=== PATIENT | male | born 1970 | race Caucasian/White ===

== ENCOUNTER 2022-03-21 17:52 | Emergency (ER) | payer MEDICAID ==
[~2022-03-21] VITALS: Ht 175.3 cm; Wt 100.0 kg
[2022-03-21 17:55] VITALS: BP 157/100
== END 2022-03-22 00:34 | disposition home or self-care (01) ==
LOC: ER 17:52
DX: R20.2 Paresthesia of skin (principal); G43.909 Migraine, unspecified, not intractable, without status migrainosus; Z98.890 Other specified postprocedural states; Z88.8 Allergy status to other drugs, medicaments and biological substances; Z72.89 Other problems related to lifestyle
CPT/HCPCS: 99281

== ENCOUNTER 2023-06-24 15:53 | Emergency (ER) | payer MEDICAID ==
[~2023-06-24] VITALS: Ht 180.3 cm; Wt 100.0 kg
[2023-06-24 15:58] VITALS: BP 152/73; PULSE 89; RESP 18; TEMP 98.4; O2SAT 98
[2023-06-24] MEDS ORDERED: AMOX-117 PO (16:20)
[2023-06-24] MEDS ORDERED: NEOM10SO7 LEFT EAR (16:20)
== END 2023-06-24 16:34 | disposition home or self-care (01) ==
LOC: ER 15:54
DX: H66.002 Acute suppurative otitis media without spontaneous rupture of ear drum, left ear (principal); H60.501 Unspecified acute noninfective otitis externa, right ear; Z88.6 Allergy status to analgesic agent
CPT/HCPCS: 99283